=== PATIENT | female | born 1940 | race Caucasian/White ===

== ENCOUNTER → 2016-07-28 | Outpatient (CLI) | payer MEDICARE, OTHER ==
[~2016-07-28] MED LIST: ASPIRIN 81MG TA81 MG PO; ATIVAN GENERIC0.5 MG PO; ATORVASTATIN CA20 MG PO; AVAPRO300 MG PO; CARVEDILOL3.125 MG PO; HYDROCHLOROTHIA25 M1 PO; K-DUR 2020 MEQ PO; LASIX 20MG. TAB20 MG PO; LASIX 40MG. TAB40 MG PO; LASIX20 MG PO; LIPITOR10 MG PO; LORAZEPAM0.5 MG/TAB PO; LORTAB 500 MG-71 TAB PO; NEXIUM40 MG PO; SYNTHROID0.15 MG PO; WARFARIN SOD5 MG PO; WARFARIN SODIU7.5 MG PO
[2016-07-28 12:19] LABS: BUN 42 mg/dL (7-18)
[2016-07-28 12:23] LABS: GFR (ESTIMATED) 23 ML/MIN (59-)
== END ==
LOC: LAB 11:19
PROVIDERS: Internal Medicine Cardiovascular Disease
DX: I10 Essential (primary) hypertension (principal); Z79.01 Long term (current) use of anticoagulants; Z51.81 Encounter for therapeutic drug level monitoring